=== PATIENT | female | born 1990 | race Caucasian/White ===

== ENCOUNTER 2016-12-20 01:26 | Observation (INO) | payer OTHER, MEDICAID ==
[~2016-12-20] VITALS: Ht 157.5 cm; Wt 80.9 kg
[~2016-12-20 01:26] MED LIST: CLIN150 PO; PRENCAP6 PO
[2016-12-20 01:35] VITALS: BP 131/98; PULSE 74; RESP 16; TEMP 98; O2SAT 97
[2016-12-20] MEDS ORDERED: SODIUM CHLOR 0.9% 1000 ML INJ 1,000 ML IV SCH (01:57)
[2016-12-20] MEDS ORDERED: ONDANSETRON HCL 4 MG/2 ML VIAL IVP ONE (02:00)
[2016-12-20] MEDS ORDERED: PANTOPRAZOLE SODIUM 40 MG VIAL IVP ONE (02:00)
[2016-12-20] MEDS ORDERED: MORPHINE SULFATE 4 MG/ML INJ IV PUSH ONE (02:00)
--- NOTE | 2016-12-20 02:01 | PD ---
HPI Chief Complaint: Flank/Kidney Pain Time Seen by Provider: 01:51 Travel History International Travel<30 days: Yes Contact w/Intl Traveler<30days: Yes Name of Country Traveled to: [place] Traveled to known affect area: No History of Present Illness HPI 26-year-old female complains of right flank pain and right upper quadrant abdominal pain with nausea vomiting. Patient states that symptoms started about 5 days ago and get worse since then. Patient states the pain constant pain localized to right flank and right upper quadrant of the abdomen. Patient denies any pain radiation. Patient denies any fever chills. Patient denies any dysuria or frequency. Patient denies any vaginal discharge or bleeding. Patient has IUD in place. On a scale of 1-10 the pain is a 9. PFSH Past Medical History Depression: No Diminished Hearing: No Immunizations Current: Yes Myocardial Infarction: Yes Seizures: Yes (03/29 AFTER A FALL PER PARAMEDICS) Tetanus Vaccination: < 5 Years Influenza Vaccination: No ?: Not LMP: IUD - 03/06 : 1 Para: 1 Past Surgical History Surgical History: No Previous Surgery Social History Alcohol Use: No Tobacco Use: No Substance Use: No Allergies-Medications (Allergen,Severity, Reaction): Coded Allergies: No Known Allergies (Verified , 12/20/16) Reported Meds & Prescriptions Reported Meds & Active Scripts Active No Active Prescriptions or Reported Medications Review of Systems General / Constitutional: No: Fever Eyes: No: Visual changes HENT: No: Headaches Cardiovascular: No: Chest Pain or Discomfort Respiratory: No: Shortness of Breath Gastrointestinal: Positive: Nausea, Vomiting, Abdominal Pain Genitourinary: No: Dysuria Musculoskeletal: No: Pain Skin: No Rash Neurologic: No: Weakness Psychiatric: No: Depression Endocrine: No: Polydipsia Hematologic/Lymphatic: No: Easy Bruising Physical Exam Narrative GENERAL: Well-nourished, well-developed patient. SKIN: Warm and dry. HEAD: Normocephalic. EYES: No scleral icterus. No injection or drainage. NECK: Supple, trachea midline. No JVD or lymphadenopathy. CARDIOVASCULAR: Regular rate and rhythm without murmurs, gallops, or rubs. RESPIRATORY: Breath sounds equal bilaterally. No accessory muscle use. GASTROINTESTINAL: Abdomen soft, nondistended. Patient has moderate tenderness on palpation right upper quadrant and right flank area. No rebound tenderness. No mass. MUSCULOSKELETAL: No cyanosis, or edema. BACK: Nontender without obvious deformity. No CVA tenderness. Neurologic exam normal. Data Data Last Documented VS Vital Signs Date Time Temp Pulse Resp B/P Pulse Ox O2 Delivery O2 Flow Rate FiO2 12/20/16 03:32 75 18 145/82 98 Room Air 12/20/16 01:35 98.0 Orders Complete Blood Count With Diff (12/20/16 01:57) Comprehensive Metabolic Panel (12/20/16 01:57) Lipase (12/20/16 01:57) Prothrombin Time / Inr (Pt) (12/20/16 01:57) Act Partial Throm Time (Ptt) (12/20/16 01:57) Urinalysis - C+S If Indicated (12/20/16 01:57) Ct Abd/Pel W Iv Contrast(Rout) (12/20/16 01:57) Iv Access Insert/Monitor (12/20/16 01:57) Ecg Monitoring (12/20/16 01:57) Oximetry (12/20/16 01:57) Morphine Inj (Morphine Inj) (12/20/16 02:00) Ondansetron Inj (Zofran Inj) (12/20/16 02:00) Pantoprazole Inj (Protonix Inj) (12/20/16 02:00) Sodium Chlor 0.9% 1000 Ml Inj (Ns 1000 M (12/20/16 01:57) Ed Urine Pregnancytest Poc (12/20/16 01:57) Iohexol 350 Inj (Omnipaque 350 Inj) (12/20/16 03:48) Piperacil-Tazo 3.375 Gm Premix (Zosyn 3. (12/20/16 04:45) Labs Laboratory Tests Test 12/20/16 02:24 White Blood Count 7.8 TH/MM3 Red Blood Count 5.14 MIL/MM3 Hemoglobin 13.9 GM/DL Hematocrit 41.7 % Mean Corpuscular Volume 81.2 FL Mean Corpuscular Hemoglobin 27.0 PG Mean Corpuscular Hemoglobin 33.3 % Concent Red Cell Distribution Width 13.5 % Platelet Count 315 TH/MM3 Mean Platelet Volume 8.9 FL Neutrophils (%) (Auto) 60.1 % Lymphocytes (%) (Auto) 31.7 % Monocytes (%) (Auto) 5.4 % Eosinophils (%) (Auto) 1.9 % Basophils (%) (Auto) 0.9 % Neutrophils # (Auto) 4.7 TH/MM3 Lymphocytes # (Auto) 2.5 TH/MM3 Monocytes # (Auto) 0.4 TH/MM3 Eosinophils # (Auto) 0.1 TH/MM3 Basophils # (Auto) 0.1 TH/MM3 CBC Comment DIFF FINAL Differential Comment Prothrombin Time 10.5 SEC Prothromb Time International 1.0 RATIO Ratio Activated Partial 27.3 SEC Thromboplast Time Urine Color YELLOW Urine Turbidity MOD Urine pH 7.0 Urine Specific [place] 1.033 Urine Protein 30 mg/dL Urine Glucose (UA) NEG mg/dL Urine Ketones NEG mg/dL Urine Occult Blood NEG Urine Nitrite NEG Urine Bilirubin NEG Urine Leukocyte Esterase NEG Urine WBC 0-2 /hpf Urine Squamous Epithelial 0-5 /hpf Cells Urine Amorphous Sediment LARGE Urine Bacteria OCC /hpf Urine Mucus FEW /lpf Microscopic Urinalysis Comment CULT NOT INDICATED Sodium Level 139 MEQ/L Potassium Level 4.5 MEQ/L Chloride Level 104 MEQ/L Carbon Dioxide Level 25.2 MEQ/L Anion Gap 10 MEQ/L Blood Urea Nitrogen 20 MG/DL Creatinine 0.84 MG/DL Estimat Glomerular Filtration 83 ML/MIN Rate Random Glucose 93 MG/DL Calcium Level 8.7 MG/DL Total Bilirubin 0.7 MG/DL Aspartate Amino Transf 20 U/L (AST/SGOT) Alanine Aminotransferase 20 U/L (ALT/SGPT) Alkaline Phosphatase 104 U/L Total Protein 7.4 GM/DL Albumin 3.6 GM/DL Lipase 94 U/L MDM Medical Decision Making Medical Screen Exam Complete: Yes Emergency Medical Condition: Yes Interpretation(s) Last Impressions Abdomen/Pelvis CT 12/20/16 0157 Signed Impressions: Service Date/Time: Tuesday, December 20, 2016 03:33 - CONCLUSION: 1. Mild gallbladder wall thickening with trace pericholecystic fluid most characteristic of an early cholecystitis in patient with right upper quadrant pain. 2. Intrauterine device present. 3. Small hiatal hernia. Elias Katz MD 4:16 AM. CBC within normal limit. CMP within normal limit. UA is negative. Urine test negative. Differential Diagnosis Differential diagnosis including gastritis, PUD, pancreatitis, cholecystitis, colitis, UTI, pyelonephritis, nephrolithiasis. Narrative Course 26-year-old female with right flank pain and right upper quadrant abdominal pain. Normal saline solution 1 25 cc an hour. Morphine 2 mg IV. Zofran 4 g IV. Protonix 40 mg IV. Zosyn 3.375 g IV given. I spoke with Dr. Wood, [facility] surgeon licensing registration examiner. Advised admission to the main hospital pending surgery. Diagnosis Primary Impression: Acute cholecystitis Admitting Information Admitting Physician Requests: Observation Scripts No Active Prescriptions or Reported Meds Quentin Nicolas MD Dec 20, 2016 02:01
[2016-12-20 02:41] VITALS: RESP 18; O2SAT 98
[2016-12-20 02:44] LABS: BLOOD, URINE NEG (NEG); GLUCOSE,URINE NEG (NEG); KETONE, URINE NEG (NEG); NITRITE,URINE NEG (NEG)
[2016-12-20 02:45] LABS: AUTOMATED NEUTROPHIL # 4.7 TH/MM3 (1.8-7.7); BASOPHIL # 0.1 TH/MM3 (0-0.2); BASOPHIL % 0.9 % (0.0-2.0); EOSINOPHIL # 0.1 TH/MM3 (0-0.4); EOSINOPHIL % 1.9 % (0.0-4.0); HEMATOCRIT 41.7 % (35.0-46.0); HEMO FLAGS DIFF FINAL; LYMPH % 31.7 % (9.0-44.0); LYMPHOCYTE # 2.5 TH/MM3 (1.0-4.8); MEAN CELL VOLUME 81.2 FL (80.0-100.0); MEAN CORPUSCULAR HGB CONC 33.3 % (32.0-36.0); MONO % 5.4 % (0.0-8.0); NEUT % 60.1 % (16.0-70.0); PLATELET COUNT 315 TH/MM3 (150-450); RED BLOOD COUNT 5.14 MIL/MM3 (4.00-5.30); RED CELL DISTRIBUTION WIDTH 13.5 % (11.6-17.2); WHITE BLOOD COUNT 7.8 TH/MM3 (4.0-11.0)
[2016-12-20 02:52] LABS: CHLORIDE 104 MEQ/L (98-107); MUCUS URINE FEW /lpf (OCC); SODIUM (NA) 139 MEQ/L (136-145); URINE COLOR YELLOW (YELLW/STRAW)
[2016-12-20 02:53] LABS: BACTERIA, URINE OCC /hpf; SQUAMOUS EPITHELIAL CELL URINE 0-5 /hpf (0-5)
[2016-12-20 02:54] LABS: COMMENT (UR) CULT NOT INDICATED; CULTURE IF INDICATED CULT NOT INDICATED; WBC, URINE 0-2 /hpf (0-5)
[2016-12-20 02:56] LABS: ANION GAP 10 MEQ/L (5-15); BICARBONATE 25.2 MEQ/L (21.0-32.0); BLOOD UREA NITROGEN 20 MG/DL (7-18)
[2016-12-20 02:57] LABS: APTT (PATIENT) 27.3 SEC (24.3-30.1); PROTHROMBIN TIME - PATIENT 10.5 SEC (9.8-11.6)
[2016-12-20 02:59] LABS: ALT (GPT) 20 U/L (10-53); AST (GOT) 20 U/L (15-37); GLOMERULAR FILTRATION RATE 83 ML/MIN (>89)
[2016-12-20 03:00] LABS: TOTAL BILIRUBIN ADULT 0.7 MG/DL (0.2-1.0)
[2016-12-20 03:02] LABS: ALKALINE PHOSPHATASE 104 U/L (45-117)
[2016-12-20 03:07] LABS: POTASSIUM 4.5 MEQ/L (3.5-5.1)
[2016-12-20 03:32] VITALS: BP 145/82; PULSE 75; RESP 18; O2SAT 98
[2016-12-20] MEDS ORDERED: IOHEXOL 350 MG/ML 10 ML VIAL (for RAD DIAG) IV ONE (03:48)
--- NOTE | 2016-12-20 04:09 | RADHPO ---
EXAM DATE/TIME: 12/20/2016 03:33 [facility] COMPARISON: No previous studies available for comparison. INDICATIONS : Right upper quadrant and back pain. IV CONTRAST: 100 cc Omnipaque 350 (iohexol) IV ORAL CONTRAST: No oral contrast ingested. RADIATION DOSE: 15.70 CTDIvol (mGy) MEDICAL HISTORY : Cardiovascular disease. Seizures. SURGICAL HISTORY : None. ENCOUNTER: Initial ACUITY: 4 - 6 days PAIN SCALE: 8/10 LOCATION: Right upper quadrant TECHNIQUE: Volumetric scanning of the abdomen and pelvis was performed. Using automated exposure control and ad justment of the mA and/or kV according to patient size, radiation dose was kept as low as reasonably achievable to obtain optimal diagnostic quality images. FINDINGS: Lung bases are clear. The gallbladder wall is mildly thickened with trace pericholecystic fluid but could represent an michaela y cholecystitis. Mild fatty liver. Spleen, adrenals, kidneys and pancreas unremarkable. No free fluid within the bowel obstruction. No adenopathy. Intrauterine device present within the [place]. No pelvic masses or free fluid. No acute bony abnormalities. CONCLUSION: 1. Mild gallbladder wall thickening with trace pericholecystic fluid most characteristic of an early cholecystitis in patient with right upper quadrant pain. 2. Intrauterine device present. 3. Small hiatal hernia. Elias Katz MD on December 20, 2016 at 4:03 Board Certified Radiologist. This report was verified electronically.
[2016-12-20] MEDS ORDERED: PIPERACIL-TAZO 3.375 GM PREMIX 50 ML IV ONE (04:45)
[2016-12-20] MEDS ORDERED: D5-1/2 NS + KCL 20 MEQ INJ 1,000 ML IV SCH (04:47)
[2016-12-20] MEDS ORDERED: ONDANSETRON HCL 4 MG/2 ML VIAL IV PRN ×2 (05:00)
[2016-12-20] MEDS ORDERED: SODIUM CHLORIDE 0.9% FLUSH 5 ML FLUSH IV PRN (05:00)
[2016-12-20] MEDS ORDERED: MORPHINE SULFATE 4 MG/ML INJ IV PUSH PRN ×3 (05:00)
[2016-12-20] MEDS ORDERED: SODIUM CHLORIDE 0.9% FLUSH 5 ML FLUSH IVF PRN (05:00)
[2016-12-20] MEDS ORDERED: ACETAMINOPHEN 325 MG TAB PO PRN (05:00)
[2016-12-20 05:20] VITALS: O2SAT 98
[2016-12-20 05:54] VITALS: BP 100/61; PULSE 72; RESP 18; O2SAT 98
[2016-12-20] MEDS ORDERED: PROPOFOL 200 MG/20 ML AMP IV ONE (07:47)
[2016-12-20] MEDS ORDERED: ONDANSETRON HCL 4 MG/2 ML VIAL IV PUSH ONE (07:48)
[2016-12-20] MEDS ORDERED: NEOSTIGMINE 3 MG/3 ML SYR IV ONE (07:48)
[2016-12-20] MEDS ORDERED: LACTATED RINGER'S 1000 ML INJ 1,000 ML IV ONE (07:48)
[2016-12-20] MEDS ORDERED: SODIUM CHLORIDE 0.9% FLUSH 5 ML FLUSH IV SCH (09:00)
[2016-12-20] MEDS ORDERED: SODIUM CHLORIDE 0.9% FLUSH 5 ML FLUSH IVF SCH (09:00)
[2016-12-20] MEDS ORDERED: DEXAMETHASONE SOD PHOS 4 MG/ML VIAL ONE (09:34)
[2016-12-20] MEDS ORDERED: MIDAZOLAM HCL 2 MG/2 ML VIAL ONE (09:34)
[2016-12-20] MEDS ORDERED: FAMOTIDINE 20 MG/2 ML VIAL ONE (09:34)
[2016-12-20] MEDS ORDERED: ACETAMINOPHEN 1000 MG/100 ML VIAL IV ONE (09:34)
[2016-12-20] MEDS ORDERED: fentaNYL CITRATE 250 MCG/5 ML AMP ONE ×2 (09:34→11:20)
[2016-12-20] MEDS ORDERED: BUPIVACAINE/EPINEPHRINE 0.25% PF 30 ML VIAL ONE (09:39)
--- NOTE | 2016-12-20 09:42 | HHI.HP ---
[facility] Service [facility] General Surgery Primary Care Physician Non-Staff Admission Diagnosis acute cholecystitis Chief Complaint: Abdominal pain History of Present Illness This is a 26-year-old female who presented to the emergency department with a 5- 6 days of right upper quadrant and right mid back pain associated with nausea. The pain was worse after eating. No fever or chills. She has had similar pain in the mid back before but never the right upper quadrant. Laboratory essentially normal but CT scan of the abdomen and pelvis in the emergency department revealed gallbladder wall thickening with pericholecystic fluid consistent with acute cholecystitis. Review of Systems Constitutional: DENIES: Fever, Chills Eyes: DENIES: Eye inflammation, Eye pain Cardiovascular: DENIES: Chest pain, Palpitations Gastrointestinal: COMPLAINS OF: Abdominal pain, Nausea Integumentary: DENIES: Pruritus, Rash Neurologic: DENIES: Abnormal gait, Headache Past Family Social History Past Medical History None Past Surgical History None Reported Medications Reported Meds & Active Scripts Active No Active Prescriptions or Reported Medications Allergies: Coded Allergies: No Known Allergies (Verified , 12/20/16) Active Ordered Medications Current Medications Medications (Trade) Dose Ordered Sig/Mahendra Route Start Time Stop Time Status Last Admin (D5-1/2 NS + KCl 20 Meq Inj) 1,000 ml @ 100 mls/hr Q10H IV 12/20/16 04:47 12/20/16 05:14 (NS Flush) 2 ml UNSCH PRN IV 12/20/16 05:00 (NS Flush) 2 ml BID IV 12/20/16 09:00 (Zofran Inj) 4 mg Q6H PRN IV 12/20/16 05:00 (Morphine Inj) 2 mg Q3H PRN IV PUSH 12/20/16 05:00 (Morphine Inj) 4 mg Q3H PRN IV PUSH 12/20/16 05:00 (Zofran Inj) 4 mg Q6H PRN IV 12/20/16 05:00 (Tylenol) 650 mg Q4H PRN PO 12/20/16 05:00 Family History Noncontributory Social History Denies alcohol or tobacco or drug use. She has a 1-year-old daughter. Physical Exam Vital Signs Vital Signs Date Time Temp Pulse Resp B/P Pulse Ox O2 Delivery O2 Flow Rate FiO2 12/20/16 07:05 16 12/20/16 05:54 72 18 100/61 98 Room Air 12/20/16 05:20 98 21 12/20/16 03:32 75 18 145/82 98 Room Air 12/20/16 02:41 18 98 Room Air 12/20/16 01:44 74 18 12/20/16 01:35 98.0 74 16 131/98 97 Physical Exam GENERAL: Awake and alert. No acute distress. Cooperative. Obese. HEAD: Normocephalic. Atraumatic. EYES: Pupils equal round and reactive to light bilaterally. No scleral icterus. CHEST: Lungs clear to auscultation bilaterally with no wheezing or rhonchi. No respiratory distress. CARDIOVASCULAR: Regular rate and rhythm. ABDOMEN: Round, soft. Moderate tenderness to deep palpation in the right upper quadrant. Positive Yancey sign. No rebound or guarding. EXTREMITIES: No cyanosis or edema. SKIN: Warm, dry, nonjaundiced. Laboratory Laboratory Tests Test 12/20/16 02:24 White Blood Count 7.8 Red Blood Count 5.14 Hemoglobin 13.9 Hematocrit 41.7 Mean Corpuscular Volume 81.2 Mean Corpuscular Hemoglobin 27.0 Mean Corpuscular Hemoglobin 33.3 Concent Red Cell Distribution Width 13.5 Platelet Count 315 Mean Platelet Volume 8.9 Neutrophils (%) (Auto) 60.1 Lymphocytes (%) (Auto) 31.7 Monocytes (%) (Auto) 5.4 Eosinophils (%) (Auto) 1.9 Basophils (%) (Auto) 0.9 Neutrophils # (Auto) 4.7 Lymphocytes # (Auto) 2.5 Monocytes # (Auto) 0.4 Eosinophils # (Auto) 0.1 Basophils # (Auto) 0.1 CBC Comment DIFF FINAL Differential Comment Prothrombin Time 10.5 Prothromb Time International 1.0 Ratio Activated Partial 27.3 Thromboplast Time Urine Color YELLOW Urine Turbidity MOD Urine pH 7.0 Urine Specific [place] 1.033 Urine Protein 30 Urine Glucose (UA) NEG Urine Ketones NEG Urine Occult Blood NEG Urine Nitrite NEG Urine Bilirubin NEG Urine Leukocyte Esterase NEG Urine WBC 0-2 Urine Squamous Epithelial 0-5 Cells Urine Amorphous Sediment LARGE Urine Bacteria OCC Urine Mucus FEW Microscopic Urinalysis Comment CULT NOT INDICATED Sodium Level 139 Potassium Level 4.5 Chloride Level 104 Carbon Dioxide Level 25.2 Anion Gap 10 Blood Urea Nitrogen 20 Creatinine 0.84 Estimat Glomerular Filtration 83 Rate Random Glucose 93 Calcium Level 8.7 Total Bilirubin 0.7 Aspartate Amino Transf 20 (AST/SGOT) Alanine Aminotransferase 20 (ALT/SGPT) Alkaline Phosphatase 104 Total Protein 7.4 Albumin 3.6 Lipase 94 Result Diagram: 12/20/1622312/20/16223 Imaging Last Impressions Abdomen/Pelvis CT 12/20/16 015 Signed Impressions: Service Date/Time: Tuesday, December 20, 2016 03:33 - CONCLUSION: 1. Mild gallbladder wall thickening with trace pericholecystic fluid most characteristic of an early cholecystitis in patient with right upper quadrant pain. 2. Intrauterine device present. 3. Small hiatal hernia. Elias Katz MD Assessment and Plan Assessment and Plan 26-year-old female with persistent right upper quadrant abdominal pain and CT scan consistent with acute cholecystitis. Gallstones were not identified on the CT scan but they're likely present. I recommend to proceed with laparoscopic, possible open, cholecystectomy. I discussed the details risks and benefits with the patient and she desires to proceed. She will likely be able to be discharged home today. IsraelTeddy short MD Dec 20, 2016 09:42
[2016-12-20] MEDS ORDERED: PIPERACIL-TAZO 3.375 GM PREMIX 50 ML IV SCH (10:45)
[2016-12-20] MEDS ORDERED: PERC5TAB12 PO (11:13)
[2016-12-20] MEDS ORDERED: oxyCODONE/ACETAMINOPHEN 5 MG/325 MG TAB PO PRN ×2 (11:15)
--- NOTE | 2016-12-20 11:17 | PD.OP ---
cc: Teddy Wood MD Operative Report Date of Surgery: Dec 20, 2016 Preoperative Diagnosis: (1) Acute cholecystitis Postoperative Diagnosis: (1) Acute cholecystitis (2) Gallstones Procedure: Laparoscopic cholecystectomy Anesthesia: SHADA Surgeon: Teddy Wood Systems Programmer(s): Dai AMADO Operation and Findings: Complications: None apparent EBL: 10 cc Operative findings: Acute inflammation and wall edema. Gallstones were present. Intrahepatic gallbladder. Procedure in detail: The patient was taken to the operating room and placed in the supine position. General endotracheal anesthesia was induced. The abdomen was prepped and draped in usual sterile fashion and a surgical timeout was performed to verify correct patient procedure and site. Appropriate perioperative antibiotics were administered. Local anesthetic was injected in the skin and subcutaneous tissue superior to the umbilicus and a 5 mm incision performed. The abdomen was entered using the Optiview 5 mm trocar with direct laparoscopic visualization. The abdomen was then insufflated to 15 mmHg with CO2 gas which the patient tolerated well. Next a 12 mm port was placed in the epigastrium and two 5 mm ports in the right upper quadrant and right lateral abdomen. The patient was placed in reverse Trendelenburg position and turned slightly to the left. Attention was turned to the right upper quadrant and the dome of the gallbladder was grasped and retracted cephalad. The infundibulum was retracted laterally to expose Calot's triangle. Blunt dissection and judicious use of electrocautery was used to expose the cystic duct and the cystic artery directly entering the gallbladder. Two clips were placed proximally on each of these structures and one distally and they were transected. The gallbladder was then removed from the liver bed using electrocautery. Unfortunately, the gallbladder was entered and there was a moderate amount of spillage of bile. There was sludge present and one large stone. The gallbladder was somewhat intrahepatic and there was oozing from the liver bed. Hemostasis was achieved with electrocautery. The gallbladder was then removed from the abdomen using an Endo Catch bag. The right upper quadrant was copiously irrigated. There were no stones remaining in the abdomen. The clips were in place on the cystic duct and cystic artery stumps with no bleeding or bile leakage. The fascia of the 12 mm port site was closed with 0 Vicryl suture 2 using the crossbow laparoscopic fascial closure device. At this point, the abdomen was allowed to desufflate and trochars were removed. Skin was closed with subcuticular 4-0 Monocryl as well as Dermabond. The patient tolerated the procedure well and was extubated and taken to PACU in stable condition. All sponge and instrument counts were correct. Teddy Wood MD Dec 20, 2016 11:17
[2016-12-20] MEDS ORDERED: *morphine SULFATE 8 MG/ML PERIprocedure ONLY ONE ×3 (11:22→11:51)
[2016-12-20] MEDS ORDERED: DO NOT ADM ANY ANTICOAGULANT DRUGS XX PRN (12:00)
[2016-12-20 12:55] VITALS: BP 130/78; PULSE 83; RESP 18; TEMP 98; O2SAT 97
== END 2016-12-20 15:03 | disposition home or self-care (01) ==
LOC: PHED 01:26 → PHEDA 04:49 → NEPFCDU 08:01
PROVIDERS: ADMIT Surgery; ATTEND Surgery
DX: K80.12 Calculus of gallbladder with acute and chronic cholecystitis without obstruction (principal); R56.9 Unspecified convulsions; I25.2 Old myocardial infarction; K44.9 Diaphragmatic hernia without obstruction or gangrene; K76.0 Fatty (change of) liver, not elsewhere classified
CPT/HCPCS: 00790; 47562; 74177; 80053; 81001; 83690; 84703; 85025; 85610; 85730; 88304; 96361; 96374; 96375; 99285; C9113; G0378; J0131; J1100; J2250; J2270; J2405; J2543; J2710; J3010; J3480; J7030; J7120; Q9967